=== PATIENT | female | born 1975 | race Caucasian/White ===

== ENCOUNTER 2020-06-27 22:01 | Emergency (ER) | payer OTHER ==
[2020-06-27] MEDS ORDERED: Sodium Chloride 0.9% 1,000 ML IV ONE (22:31)
[2020-06-27] MEDS ORDERED: Ondansetron 4 MG/2 ML SDV IVPUSH ONE (22:31)
[2020-06-27] MEDS ORDERED: Sodium Chloride 0.9% 10 ML Syringe FLUSH PRN (22:31)
[2020-06-27] MEDS ORDERED: Sodium Chloride 0.9% 2.5 ML Syringe FLUSH PRN (22:31)
[2020-06-27] MEDS ORDERED: HYDROmorphone 1 MG/ML Syringe IVPUSH ONE ×2 (22:31→23:47)
[2020-06-27 23:10] LABS: CARBON DIOXIDE,CO2 28.6 mmol/L (21.0-32.0); POTASSIUM,K 3.1 mmol/L (3.5-5.1)
--- NOTE | 2020-06-27 23:40 | CT ---
INDICATION: Right flank pain TECHNIQUE: CT abdomen and pelvis without contrast. COMPARISON: None available FINDINGS: Lower chest: Unremarkable. Liver: Unremarkable. Spleen: Splenomegaly measuring 16.7 cm craniocaudally. Pancreas: Unremarkable. Gallbladder and bile ducts: Cholecystectomy. Adrenal glands: Unremarkable. Kidneys: No hydronephrosis or discrete, measurable urolithiasis. An apparent miniscule right renal density could be artifactual. GI tract: Post sleeve gastrectomy changes. No bowel obstruction. A normal appendix. Fat attenuation within the distal appendix lumen, nonspecific. No significant pericolonic changes. Vascular structures: Unremarkable. Lymph nodes: Several mildly enlarged periportal and portacaval lymph nodes measuring up to 1.5 cm in short axis. Miscellaneous: Apparent tiny posteroinferior pelvic fluid. No free air. A tiny fat containing umbilical hernia. Pelvic Organs: Hysterectomy. A 2.7 x 1.8 cm left adnexal low-density structure on image 141, an adjacent 1.8 x 1.3 cm ovoid high attenuation structure, and an additional 2.1 x 1.8 cm posterior right adnexal low-density structure more inferiorly on image 146. A partially contracted bladder. No bladder calcifications. Bones: Unremarkable for age. IMPRESSION: No obstructive uropathy or measurable urolithiasis. Splenomegaly. Mildly enlarged upper abdominal lymph nodes. Correlate clinically to exclude a lymphoproliferative disorder or lymphoma. Several left adnexal low-density and high attenuation structures, measuring up to 2.7 cm. Correlate sonographically. Please note that all CT scans at this facility use dose modulation, iterative reconstruction, and/or weight-based dosing when appropriate to reduce radiation dose to as low as reasonably achievable. Dictated by Braeden Sutherland MD @ 06/27/2020 11:37:[address] Braeden Sutherland @ Jun 27 2020 11:37PM
--- NOTE | 2020-06-27 23:53 | EDM.PDOC ---
ED HPI GENERAL MEDICAL PROBLEM - General Chief Complaint: Genitourinary Problem Stated Complaint: KIDNEY PAIN Time Seen by Provider: 06/27/20 22:55 - History of Present Illness INITIAL COMMENTS - FREE TEXT/NARRATIVE: HISTORY AND PHYSICAL: History of present illness: Is a 45-year-old female who is status post a gastric sleeve, status post cholecystectomy, status post hysterectomy, who presents ER today complaining of right-sided flank pain and right-sided pain for approximately 2 weeks. Patient reports that she does have a history of kidney stones in the past and was concerned that this might be recurrence of the stone. Patient reports. She also had her recent Covid vaccination a couple weeks ago. Patient also gets Jose R Strattera shots for her arthritis. Patient denies any recent fevers, shakes, chills, nausea, vomiting, diarrhea. Patient reports that she has been constipated recently. Patient denies any frequency urgency but reports some discomfort with urination. Patient denies any chest pain or shortness of breath. Patient denies any weakness to her upper or lower extremities. Patient reports that the pain is localized to her right lateral side and no midline neck pain. Patient denies any loss of bowel or bladder function or paresthesias to her perineal region. Review of systems: As per history of present illness and below otherwise all systems reviewed and negative. Past medical history: As per history of present illness and as reviewed below otherwise noncontributory. Surgical history: As per history of present illness and as reviewed below otherwise noncontributory. Social history: No reported history of drug or alcohol abuse. Family history: As per history of present illness and as reviewed below otherwise noncontributory. Physical exam: This patient was seen and evaluated during the 2019 SARS-CoV-2 novel coronavirus pandemic period. Community viral transmission is ongoing at time of this encounter and the emergency department is operating under pandemic response procedures. Constitutional: Patient is oriented to person, place, and time. Appears well- developed and well-nourished. No distress. HEENT: Moist mucous membranes Head: Normocephalic and atraumatic Eyes: Right eye exhibits no discharge. Left eye exhibits no discharge. No scleral icterus Neck: Normal range of motion. No tracheal deviation present. Cardiovascular: Normal rate and regular rhythm. Pulmonary: Effort normal, no respiratory distress. Abd: Soft, nondistended, no rebound/guarding, no psoas or obturator signs, no tenderness at Mcberney's point, no Tristan's sign. Pt does not present with an exam that would be consistent with an acute surgical abdomen at this time, tenderness to palpation to right side of her abdomen with tenderness palpation to her right flank. Musculoskeletal: Normal range of motion Neurologic: Alert and oriented to person, place and time. Skin: [place], warm and dry. Psychiatric: Normal mood and affect. Behavior is normal. Judgment and thought content normal. Nursing note and vital signs have been reviewed Neuro: A&Ox3. Cranial nerves II-XII grossly intact, 5/5 strength to bilateral upper and lower extremities, sensation intact to bilateral upper and lower extremities, no nystagmus, PERRLA, EOMI, normal speech, proprioception intact to bilateral lower extremities, normal finger to nose test, gait normal Diagnostics: CT of the abdomen pelvis without IV contrast reveals no significant acute pathology. There were multiple lymph nodes and a slightly enlarged spleen that I discussed with the patient. Patient reports that she has had a CT scan within the last 3 months by her primary care physician and that she will discussed the results of the CT scan with her doctor so they can compare the CT scans. I have also discussed with her and return the reports from the pelvis and the lesions that were identified. Given that the patient has had a prior CT scan, the patient will be able to follow-up with her primary care physician in [place] and get the reports for comparison. Therapeutics: Dilaudid 1 mg IV x2 Zofran 4 mg IV NSS x1 L Assessment and plan: This is a 45-year-old female complaining of right flank pain that is extremely reproducible to palpation. Patient's ER work-up is been unremarkable. Patient has been given Dilaudid 1 mg IV x2 with adequate relief in her discomfort. Patient be discharged home with a prescription for Ultram to assist her with her pain. Patient is to avoid NSAIDs secondary to her gastric sleeve. I have discussed the abnormalities on the CT scan with the patient and she will follow up with her primary care doctor for reevaluation. Definitive disposition and diagnosis as appropriate pending reevaluation and review of above. Approximately 2 weeks. Patient reports that she does have a history of kidney stones in the past and was concerned that this might be recurrence of the stone. Patient reports Right Flank Pain Score (Numeric/FACES): 10 - Related Data Allergies Allergy/AdvReac Type Severity Reaction Status Date / Time adalimumab [From Humira] Allergy Airway Verified 06/27/20 22:31 Tightness fentanyl Allergy Hallucinati Verified 06/27/20 22:32 ons Penicillins Allergy Nausea and Verified 06/27/20 22:32 Vomiting Home Meds: Home Meds ALPRAZolam [Alprazolam ER] 1 mg PO ASDIRECTED PRN 06/27/20 [History] Acetaminophen/HYDROcodone [[place] 325-7.5 MG] 3 tab PO ASDIRECTED PRN 06/27/20 [History] Cyclobenzaprine [Flexeril] 10 mg PO TID PRN 06/27/20 [History] Diclofenac Sodium 75 mg PO DAILY 06/27/20 [History] Ergocalciferol (Vitamin D2) [Vitamin D2] 500,000 cap PO DAILY 06/27/20 [History] Potassium Chloride 10 tab PO DAILY 06/27/20 [History] Ustekinumab [Stelara] 90 mg SQ ASDIRECTED 06/27/20 [History] Valsartan 40 mg PO DAILY 06/27/20 [History] hydroCHLOROthiazide [Hydrochlorothiazide] 25 mg PO DAILY 06/27/20 [History] Past Medical History Cardiovascular History: Reports: Hypertension Respiratory History: Reports: Other (See Below) Other Respiratory History: chronic pneumonia Gastrointestinal History: Reports: Cholelithiasis Genitourinary History: Reports: Renal Calculus [employer]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: Musculoskeletal History: Reports: Other (See Below) Other Musculoskeletal History: chronic knee pain Psychiatric History: Reports: Anxiety, Depression Endocrine/Metabolic History: Reports: Obesity/BMI 30+ - Infectious Disease History Infectious Disease History: Reports: Chicken Pox, MRSA - Past Surgical History HEENT Surgical History: Reports: Adenoidectomy, Tonsillectomy GI Surgical History: Reports: Bariatric Procedure, Cholecystectomy Other GI Surgeries/Procedures: gasrtric sleeve Female Surgical History: Reports: Section Social & Family History - Family History Family Medical History: No Pertinent Family History - Tobacco Use Tobacco Use Status *Q: Never Tobacco User Second Hand Smoke Exposure: No - Recreational Drug Use Recreational Drug Use: No ED ROS GENERAL - Review of Systems Review Of Systems: See Below ED EXAM, GENERAL - Physical Exam Exam: See Below Course - Vital Signs Last Recorded V/S: Last Vital Signs Temp 96.2 F L 06/27/20 22:16 Pulse 79 06/27/20 22:16 Resp 18 06/27/20 22:16 BP 171/77 H 06/27/20 22:16 Pulse Ox 96 06/27/20 22:16 - Orders/Labs/Meds Orders: Active Orders 24 hr Category Date Time Status Sodium Chloride 0.9% [Saline Flush] Med 06/27/20 22:31 Active 10 ml FLUSH ASDIRECTED PRN Sodium Chloride 0.9% [Saline Flush] Med 06/27/20 22:31 Active 2.5 ml FLUSH ASDIRECTED PRN Saline Lock Insert [OM.PC] Stat Oth 06/27/20 22:31 Ordered Medication Orders Sodium Chloride (Sodium Chloride 0.9% 10 Ml Syringe) 10 ml FLUSH ASDIRECTED PRN PRN Reason: Keep Vein Open Last Admin: 06/27/20 22:45 Dose: 10 ml Documented by: LORY Sodium Chloride (Sodium Chloride 0.9% 2.5 Ml Syringe) 2.5 ml FLUSH ASDIRECTED PRN PRN Reason: Keep Vein Open Last Admin: 06/27/20 22:46 Dose: 2.5 ml Documented by: LORY Labs: Laboratory Tests 06/27/20 06/27/20 06/27/20 Range/Units 22:45 22:45 23:25 WBC 6.11 (4.0-11.0) K/uL RBC 4.40 (4.30-5.90) M/uL Hgb 13.4 (12.0-16.0) g/dL Hct 39.3 (36.0-46.0) % MCV 89.3 (80.0-98.0) fL MCH 30.5 (27.0-32.0) pg MCHC 34.1 (31.0-37.0) g/dL RDW Std Deviation 44.7 (28.0-62.0) fl RDW Coeff of Karen 14 (11.0-15.0) % Plt Count 215 (150-400) K/uL MPV 11.10 (7.40-12.00) fL Neut % (Auto) 58.3 (48.0-80.0) % Lymph % (Auto) 33.9 (16.0-40.0) % [place] % (Auto) 5.9 (0.0-15.0) % Eos % (Auto) 1.6 (0.0-7.0) % Baso % (Auto) 0.3 (0.0-1.5) % Neut # (Auto) 3.6 (1.4-5.7) K/uL Lymph # (Auto) 2.1 (0.6-2.4) K/uL [place] # (Auto) 0.4 (0.0-0.8) K/uL Eos # (Auto) 0.1 (0.0-0.7) K/uL Baso # (Auto) 0.0 (0.0-0.1) K/uL Nucleated RBC % 0.0 /100WBC Nucleated RBCs # 0 K/uL Sodium 140 (136-145) mmol/L Potassium 3.1 L (3.5-5.1) mmol/L Chloride 101 (98-107) mmol/L Carbon Dioxide 28.6 (21.0-32.0) mmol/L BUN 14 (7.0-18.0) mg/dL Creatinine 1.1 H (0.6-1.0) mg/dL Est Cr Clr Drug Dosing 55.18 mL/min Estimated GFR (MDRD) 53.5 ml/min Glucose 102 (74-106) mg/dL Calcium 8.8 (8.5-10.1) mg/dL Total Bilirubin 0.5 (0.2-1.0) mg/dL AST 16 (15-37) IU/L ALT 24 (14-63) IU/L Alkaline Phosphatase 90 (46-116) U/L Total Protein 7.0 (6.4-8.2) g/dL Albumin 3.6 (3.4-5.0) g/dL Globulin 3.4 (2.6-4.0) g/dL Albumin/Globulin Ratio 1.1 (0.9-1.6) Lipase 54 L (73-393) U/L Urine Color YELLOW Urine Appearance CLEAR Urine pH 6.5 (5.0-8.0) Ur Specific [place] 1.020 (1.001-1.035) Urine Protein NEGATIVE (NEGATIVE) mg/dL Urine Glucose (UA) NEGATIVE (NEGATIVE) mg/dL Urine Ketones NEGATIVE (NEGATIVE) mg/dL Urine Occult Blood NEGATIVE (NEGATIVE) Urine Nitrite NEGATIVE (NEGATIVE) Urine Bilirubin NEGATIVE (NEGATIVE) Urine Urobilinogen 0.2 (<2.0) EU/dL Ur Leukocyte Esterase NEGATIVE (NEGATIVE) Meds: Medications Generic Name Dose Route Start Last Admin Trade Name Freq PRN Reason Stop Dose Admin Sodium Chloride 10 ml 06/27/20 22:31 06/27/20 22:45 Sodium Chloride 0.9% 10 Ml Syringe FLUSH 10 ml ASDIRECTED PRN Administration Keep Vein Open Sodium Chloride 2.5 ml 06/27/20 22:31 06/27/20 22:46 Sodium Chloride 0.9% 2.5 Ml Syringe FLUSH 2.5 ml ASDIRECTED PRN Administration Keep Vein Open Discontinued Medications Generic Name Dose Route Start Last Admin Trade Name Freq PRN Reason Stop Dose Admin Hydromorphone HCl 1 mg 06/27/20 22:31 06/27/20 22:46 Hydromorphone 1 Mg/Ml Syringe IVPUSH 06/27/20 22:32 1 mg ONETIME ONE Administration Hydromorphone HCl 1 mg 06/27/20 23:47 Hydromorphone 1 Mg/Ml Syringe IVPUSH 06/27/20 23:48 ONETIME ONE Sodium Chloride 1,000 mls @ 999 mls/hr 06/27/20 22:31 06/27/20 22:46 Normal Saline IV 06/27/20 23:31 999 mls/hr .Bolus ONE Administration Ondansetron HCl 4 mg 06/27/20 22:31 06/27/20 22:46 Ondansetron 4 Mg/2 Ml Sdv IVPUSH 06/27/20 22:32 4 mg ONETIME ONE Administration Departure - Departure Time of Disposition: 23:54 Disposition: Home, Self-Care 01 Condition: Good Clinical Impression: Right flank pain, Musculoskeletal pain - Discharge Information Instructions: Flank Pain, Adult, [id number], Musculoskeletal Pain Referrals: PCP,Not In Area [Primary Care Provider] - Additional Instructions: Your seen and evaluated in the ER today secondary to pain to your right flank. The work-up in the emergency department did not reveal any significant pathology. You will be discharged home with Ultra to assist you with your pain. As we discussed, your images that were obtained today revealed some incidental findings that were not related to your primary complaint. Those findings do not appear emergent in nature, however, will require the attention of your family physician and further outpatient evaluation. Please follow up with your primary doctor to have these addressed. The following information is given to patients seen in the emergency department who are being discharged to home. This information is to outline your options for follow-up care. We provide all patients seen in our emergency department with a follow-up referral. The need for follow-up, as well as the timing and circumstances, are variable depending upon the specifics of your emergency department visit. If you don't have a primary care physician on staff, we will provide you with a referral. We always advise you to contact your personal physician following an emergency department visit to inform them of the circumstance of the visit and for follow-up with them and/or the need for any referrals to a consulting specialist. The emergency department will also refer you to a specialist when appropriate. This referral assures that you have the opportunity for follow-up care with a specialist. All of these measure are taken in an effort to provide you with optimal care, which includes your follow-up. Under all circumstances we always encourage you to contact your private physician who remains a resource for coordinating your care. When calling for follow-up care, please make the office aware that this follow-up is from your recent emergency room visit. If for any reason you are refused follow-up, please contact the [facility] Emergency Department at and asked to speak to the emergency department charge nurse. [facility] [address] [place] [id number] [address] [id number] Sepsis Event Note (ED) - Evaluation Sepsis Screening Result: No Definite Risk - Focused Exam Vital Signs: Vital Signs Temp Pulse Resp BP Pulse Ox 06/27/20 22:16 96.2 F L 79 18 171/77 H 96 - My Orders Last 24 Hours: My Active Orders 06/27/20 22:31 Sodium Chloride 0.9% [Saline Flush] 10 ml FLUSH ASDIRECTED PRN Sodium Chloride 0.9% [Saline Flush] 2.5 ml FLUSH ASDIRECTED PRN Saline Lock Insert [OM.PC] Stat - Assessment/Plan Last 24 Hours: My Active Orders 06/27/20 22:31 Sodium Chloride 0.9% [Saline Flush] 10 ml FLUSH ASDIRECTED PRN Sodium Chloride 0.9% [Saline Flush] 2.5 ml FLUSH ASDIRECTED PRN Saline Lock Insert [OM.PC] Stat
== END 2020-06-28 00:31 | disposition home or self-care (01) ==
LOC: MW.ED 22:01
DX: R10.9 Unspecified abdominal pain (principal); M79.10 Myalgia, unspecified site; I10 Essential (primary) hypertension; E66.9 Obesity, unspecified; Z88.0 Allergy status to penicillin; Z88.6 Allergy status to analgesic agent; Z88.8 Allergy status to other drugs, medicaments and biological substances; Z90.49 Acquired absence of other specified parts of digestive tract; Z68.43 Body mass index [BMI] 50.0-59.9, adult; Z90.710 Acquired absence of both cervix and uterus
CPT/HCPCS: 36415; 74176; 80053; 81003; 83690; 85025; 96374; 96375; 96376; 99284; J1170; J2405; J7030